=== PATIENT | male | born 1970 | race Two or more races ===

== ENCOUNTER 2024-12-27 08:40 | Outpatient (CLI) | payer OTHER | END 2024-12-27 08:49 | disposition home or self-care (01) | LOC: SONOGRAMA 08:40 | PROVIDERS: ATTEND Internal Medicine Gastroenterology | DX: R10.13 Epigastric pain (principal); R13.10 Dysphagia, unspecified; Z12.11 Encounter for screening for malignant neoplasm of colon ==